=== PATIENT | male | born 1995 | race Caucasian/White ===

== ENCOUNTER 2019-04-05 01:22 | Emergency (ER) | payer BC ==
[~2019-04-05] VITALS: Ht 167.6 cm; Wt 77.3 kg
[2019-04-05 01:49] VITALS: BP 130/65
[2019-04-05] MEDS ORDERED: acetaminophen 325mg tablet PO ONE (02:00)
== END 2019-04-05 03:08 | disposition left against medical advice (07) ==
LOC: ER 01:23
DX: J02.9 Acute pharyngitis, unspecified (principal); Z53.21 Procedure and treatment not carried out due to patient leaving prior to being seen by health care provider